=== PATIENT | female | born 1945 | race Caucasian/White ===

== ENCOUNTER 2019-08-28 11:40 | Day surgery (SDC) | payer MEDICARE, OTHER ==
[2019-08-28] MEDS ORDERED: PROPOFOL 200 MG/20 ML BOTTLE IV ONE (11:41)
[2019-08-28] MEDS ORDERED: LIDOCAINE-MPF 2% 5 ML VIAL MC ONE (11:41)
[2019-08-28 12:05] LABS: BASOPHILS # (AUTO) 0.1 K/uL (0.0-8.0); BASOPHILS % (AUTO) 0.9 % (0.0-2.0); EOSINOPHILS # (AUTO) 0.3 K/uL (0.0-0.7); EOSINOPHILS % (AUTO) 5.2 % (0.0-7.0); HEMOGLOBIN 14.2 g/dL (10.9-14.3); LYMPHOCYTES # (AUTO) 1.7 K/uL (20.0-40.0); LYMPHOCYTES % (AUTO) 30.7 % (20.5-51.5); MEAN CORPUSCULAR HEMOGLOBIN 31.2 uug (24.7-32.8); MEAN CORPUSCULAR HGB CONC 34 g/dL (32.3-35.6); MONOCYTES # (AUTO) 0.5 K/uL (2.0-10.0); MONOCYTES % (AUTO) 8.8 % (0.0-11.0); NEUTROPHILS # (AUTO) 3.1 K/uL (1.8-8.9); NEUTROPHILS % (AUTO) 54.4 % (38.5-71.5); PLATELET COUNT (AUTO) 300 K/uL (179-408); RED BLOOD CELL COUNT(AUTO) 4.56 MIL/uL (3.63-4.92); WHITE BLOOD COUNT (AUTO) 5.7 K/uL (3.8-11.8)
[2019-08-28 12:12] LABS: CREATININE 0.7 mg/dL (0.6-1.3); POTASSIUM 4.2 mmol/L (3.5-5.1)
== END 2019-08-28 15:15 | disposition home or self-care (01) ==
LOC: DS 11:40
PROVIDERS: ATTEND Internal Medicine Gastroenterology
DX: K62.5 Hemorrhage of anus and rectum (principal); K64.8 Other hemorrhoids; K52.9 Noninfective gastroenteritis and colitis, unspecified; R10.10 Upper abdominal pain, unspecified; K31.89 Other diseases of stomach and duodenum; K29.70 Gastritis, unspecified, without bleeding; I70.0 Atherosclerosis of aorta; I10 Essential (primary) hypertension; K21.9 Gastro-esophageal reflux disease without esophagitis; E11.9 Type 2 diabetes mellitus without complications; M81.0 Age-related osteoporosis without current pathological fracture; Z88.2 Allergy status to sulfonamides; Z91.013 Allergy to seafood; Z91.040 Latex allergy status; Z91.041 Radiographic dye allergy status; Z98.890 Other specified postprocedural states; Z79.899 Other long term (current) drug therapy
CPT/HCPCS: 36415; 43239; 45378; 71045; 80048; 85025; 85730; 88305; 88342; 93005; J3490; J7120; A4217; A4663